=== PATIENT | female | born 1985 | race Two or more races ===

== ENCOUNTER 2024-05-26 11:36 | Emergency (ER) | payer BC ==
[~2024-05-26] VITALS: Ht 160 cm; Wt 80.7 kg
[2024-05-26 12:52] LABS: HEMATOCRIT 33.9 % (36.0-45.00); HEMOGLOBIN 10.9 g/dL (12.0-15.00); MEAN CELL VOLUME 81.2 fL (80.00-100.00); MEAN CORPUSCULAR HEMOGLOBIN 26.1 pg (27.00-32.0); MEAN CORPUSCULAR HGB CONC 32.2 g/dl (32.0-36.0); PLATELET COUNT 238 K/uL (150-450); RED BLOOD COUNT 4.18 M/uL (4.00-6.00); RED CELL DISTRIBUTION WIDTH 15.1 % (11.5-14.5)
[2024-05-26 13:07] LABS: CALCIUM 8.2 mg/dL (8.5-10.1); CREATININE SERUM 1.43 mg/dL (0.55-1.02); GFR 41.07; POTASSIUM 4.73 mEq/L (3.5-5.1)
[2024-05-26 14:27] LABS: URINE APPEARANCE Cloudy; URINE BILIRRUBIN Negative (NEGATIVE); URINE BLOOD Negative; URINE COLOR Yellow; URINE GLUCOSE Negative (NEGATIVE); URINE KETONE Trace (NEGATIVE); URINE LEUKOCYTE Moderate; URINE NITRATE Negative; URINE PROTEIN Trace (NEGATIVE); URINE UROBILINOGEN 0.2 E.U./dl
[2024-05-26 14:32] LABS: URINE BACTERIA 6692.7 uL (0.0-1933); URINE CAST 2.13 uL (0.0-1.40); URINE EPITHELIAL CELLS 118.4 uL (0.0-38.8); URINE RBC 4.5 uL (0.0-20.8); URINE WBC 40.8 uL (0.0-23.2)
[2024-05-26 15:10] LABS: URINE YEAST NEGATIVE /hpf
[2024-05-26] MEDS ORDERED: LIDOCAINE HCL 1% 10ML VIAL ONE (15:44)
[2024-05-26] MEDS ORDERED: CEFTRIAXONE SODIUM 1,000 MG VIAL IM ONE (15:45)
[2024-05-26] MEDS ORDERED: CEFTRIAXONE SODIUM 1,000 MG VIAL ONE (15:45)
== END 2024-05-26 15:57 ==
LOC: ER 11:37
PROVIDERS: General Practice
DX: N39.0 Urinary tract infection, site not specified (principal); R30.0 Dysuria